=== PATIENT | female | born 1985 ===

== ENCOUNTER 2023-01-07 07:03 | Inpatient (IN) | payer OTHER ==
[2023-01-07] VITALS (18 sets, daily range): BP systolic 112–140; BP diastolic 58–89
[~2023-01-07] VITALS: Ht 160 cm; Wt 90.7 kg
[~2023-01-07 07:03] MED LIST: BENADRYL25 MG PO; EVENING PRIMR1000 MG PO; IBUP800 PO; PNV 29-1 TABLE1 EACH PO; Pepcid20 MG PO
[2023-01-07 07:47] LABS: BASOPHILS ABSOLUTE AUTO 0.03 K/mm3 (0.00-0.23); BASOPHILS PERCENT AUTO 0 % (0-2); EOSINOPHILS ABSOLUTE AUTO 0.24 K/mm3 (0.00-0.68); EOSINOPHILS PERCENT AUTO 3 % (0-6); Hematocrit 33.2 % (33.0-51.0); Hemoglobin 11.7 g/dL (11.5-16.0); IMMATURE GRAN ABSOLUTE AUTO 0.03 K/mm3 (0.00-0.10); IMMATURE GRAN PERCENT AUTO 0 % (0-1); LYMPHOCYTES ABSOLUTE AUTO 2.11 K/mm3 (0.84-5.20); LYMPHOCYTES PERCENT AUTO 27 % (21-46); MONOCYTES ABSOLUTE AUTO 0.42 K/mm3 (0.16-1.47); MONOCYTES PERCENT AUTO 5 % (4-13); Mean Corpuscular HGB 30.9 pg (26.0-34.0); Mean Corpuscular HGB Conc 35.2 g/dL (31.5-36.5); Mean Corpuscular Volume 88 fL (80-100); Mean Platelet Volume 12.2 fL (9.1-12.4); NEUTROPHILS ABSOLUTE AUTO 5.03 K/mm3 (1.96-9.15); NEUTROPHILS PERCENT AUTO 64 % (41-73); Platelet Count 113 K/mm3 (150-400); RDW Coefficient Variation 13.4 % (11.7-14.2); RDW Standard Deviation 42.9 fL (35.1-46.3); Red Blood Cell Count 3.79 M/mm3 (3.80-5.20); White Blood Cell Count 7.86 K/mm3 (4.00-11.30)
[2023-01-07] MEDS ORDERED: LORA10ER PO (08:03)
[2023-01-07] MEDS ORDERED: Calcium Carbon500 MG (08:03)
[2023-01-07] MEDS ORDERED: PRENATAL TABLE1 EAC2 PO (08:03)
[2023-01-07] MEDS ORDERED: FEOSOL BIFERA 228 MG PO (08:04)
[2023-01-07] MEDS ORDERED: DOCU100 PO (08:04)
--- NOTE | 2023-01-07 18:51 | NUR ---
QBL UNABLE TO GET A QBL AT DELIVERY D/T FAST DELIVERY AND NO TIME TO CHANGE DRAPES.
[2023-01-08 04:47] VITALS: BP 126/68
[2023-01-08 04:54] LABS: Hematocrit 31.7 % (33.0-51.0); Hemoglobin 10.8 g/dL (11.5-16.0); Mean Corpuscular HGB 30.5 pg (26.0-34.0); Mean Corpuscular HGB Conc 34.1 g/dL (31.5-36.5); Mean Corpuscular Volume 90 fL (80-100); Mean Platelet Volume 12.9 fL (9.1-12.4); Platelet Count 117 K/mm3 (150-400); RDW Coefficient Variation 13.4 % (11.7-14.2); RDW Standard Deviation 44.3 fL (35.1-46.3); Red Blood Cell Count 3.54 M/mm3 (3.80-5.20); White Blood Cell Count 14.83 K/mm3 (4.00-11.30)
[2023-01-08 08:11] VITALS: BP 117/62
--- NOTE | 2023-01-08 08:39 | NUR ---
ASSUMSED CARE OF PT AT 0700. REPORT RECEIVED FROM ISRAEL BRAND. PT AND ARE AWAKE WHEN I CHECKED IN TO ROUND. NO NEEDS IDENTIFIED AT THIS TIME. ASSESSMENTS WNL DONE AFTER BREAKFAST. PED HOSPITALIST ROUNDED AND NO NEW ORDERS AT THIS TIME. POC DISCUSSED.
[2023-01-08 12:28] VITALS: BP 121/70
[2023-01-08 15:49] VITALS: BP 116/74
[2023-01-08 18:52] VITALS: BP 120/81
== END 2023-01-08 19:10 | disposition home or self-care (01) | DRG 807 ==
LOC: OBS 07:03 → BC 07:04 → OBS 07:19 → BC 07:20
PROVIDERS: ADMIT Nurse Practitioner Obstetrics & Gynecology
PROC: 10E0XZZ Delivery of Products of Conception, External Approach (ICD-10-PCS; principal; 2023-01-07)
PROC: 3E033VJ Introduction of Other Hormone into Peripheral Vein, Percutaneous Approach (ICD-10-PCS; 2023-01-07)
DX: O80 Encounter for full-term uncomplicated delivery (principal); Z37.0 Single live birth; Z3A.39 39 weeks gestation of pregnancy; Z88.0 Allergy status to penicillin; Z88.8 Allergy status to other drugs, medicaments and biological substances
CPT/HCPCS: 36415; 85025; 85027; 86850; 86900; 86901; A9270; J1885; J2210; J2590; J3010; J7120

== ENCOUNTER 2023-04-12 21:55 | Emergency (ER) | payer OTHER ==
[~2023-04-12] VITALS: Ht 160 cm; Wt 81.7 kg
[~2023-04-12 21:55] MED LIST changes: +Calcium Carbon500 MG; +DOCU100 PO; +FEOSOL BIFERA 228 MG PO; +LORA10ER PO; +PRENATAL TABLE1 EAC2 PO
[2023-04-13] MEDS ORDERED: Ativan1 MG PO (00:42)
[2023-04-13 01:29] VITALS: BP 120/88
== END 2023-04-13 00:12 | disposition home or self-care (01) ==
LOC: ER 21:55
DX: F41.9 Anxiety disorder, unspecified (principal); Z79.899 Other long term (current) drug therapy
CPT/HCPCS: 99283; A9270

== ENCOUNTER → 2023-05-03 | Outpatient (CLI) | payer OTHER ==
[~2023-05-03] MED LIST changes: +Ativan1 MG PO
== END ==
LOC: LAB SHORT 17:45 → LAB 17:45
DX: L01.00 Impetigo, unspecified (principal)
CPT/HCPCS: 87070; 87077; 87147; 87186; 87205

== ENCOUNTER 2024-02-22 21:25 | Emergency (ER) | payer OTHER ==
[~2024-02-22] VITALS: Ht 162.6 cm; Wt 85.7 kg
[2024-02-22] MEDS ORDERED: Ondansetron 4 MG SoluTab SL ONE (21:50)
[2024-02-22 22:03] LABS: BASOPHILS ABSOLUTE AUTO 0.05 K/mm3 (0.00-0.23); BASOPHILS PERCENT AUTO 1 % (0-2); EOSINOPHILS ABSOLUTE AUTO 0.38 K/mm3 (0.00-0.68); EOSINOPHILS PERCENT AUTO 5 % (0-6); Hematocrit 36.1 % (33.0-51.0); Hemoglobin 11.9 g/dL (11.5-16.0); IMMATURE GRAN ABSOLUTE AUTO 0.01 K/mm3 (0.00-0.10); IMMATURE GRAN PERCENT AUTO 0 % (0-1); LYMPHOCYTES ABSOLUTE AUTO 3.14 K/mm3 (0.84-5.20); LYMPHOCYTES PERCENT AUTO 37 % (21-46); MONOCYTES ABSOLUTE AUTO 0.59 K/mm3 (0.16-1.47); MONOCYTES PERCENT AUTO 7 % (4-13); Mean Corpuscular HGB 27.2 pg (26.0-34.0); Mean Corpuscular Volume 83 fL (80-100); Mean Platelet Volume 11.4 fL (9.1-12.4); NEUTROPHILS ABSOLUTE AUTO 4.23 K/mm3 (1.96-9.15); NEUTROPHILS PERCENT AUTO 50 % (41-73); Platelet Count 234 K/mm3 (150-400); RDW Coefficient Variation 14.9 % (11.7-14.2); RDW Standard Deviation 45.1 fL (35.1-46.3); Red Blood Cell Count 4.37 M/mm3 (3.80-5.20)
[2024-02-22] MEDS ORDERED: Ondansetron HCl 2 MG / ML 2ML Vial IV ONE (22:10)
[2024-02-22 22:23] LABS: Albumin, Blood 3.5 g/dL (3.4-5.0); Bilirubin, Total 0.2 mg/dL (0.1-1.0); Bun/Creatinine Ratio 28.5 (12.0-20.0); Calcium, Blood 8.3 mg/dL (8.5-10.1); Creatinine, Blood 0.77 mg/dL (0.40-1.00); Globulin, Blood 3.6 g/dL (2.2-4.0); Potassium, Blood 4.6 mmol/L (3.5-5.5); Total Protein, Blood 7.1 g/dL (6.4-8.2)
[2024-02-22 22:25] LABS: Base Excess Venous -0.5 mmol/L; Bicarbonate Venous 24.1 mmol/L (24.0-30.0); PCO2 Venous 37.4 mmHg (38-42); pH Blood Venous 7.42 (7.34-7.37)
[2024-02-22] MEDS ORDERED: Ondansetron Odt8 MG MM (22:39)
[2024-02-22 23:00] VITALS: BP 128/99
== END 2024-02-22 23:03 | disposition home or self-care (01) ==
LOC: ER 21:25
PROVIDERS: Physician Assistant
DX: Z77.110 Contact with and (suspected) exposure to air pollution (principal); Z79.899 Other long term (current) drug therapy
CPT/HCPCS: 80053; 82375; 82550; 82803; 85025; 96374; 99282-25; J2405